=== PATIENT | male | born 1990 | race Caucasian/White ===

== ENCOUNTER 2018-11-02 19:51 | Emergency (ER) | payer OTHER ==
[~2018-11-02] VITALS: Ht 190.5 cm; Wt 93.0 kg
[2018-11-02] MEDS ORDERED: BUPROPION XL300 MG ORAL (20:13)
[2018-11-02] MEDS ORDERED: ADDERALL 30 MG30 MG ORAL (20:13)
--- NOTE | 2018-11-02 20:17 | NUR ---
ED Nurse Note: pt walked in c/o abd pain x 72 hrs, pt states he has sweats, chills, diarrhea, low back pain radiating to front abd on left side, and pain on urination. pt AA&ox4, gcs=15, skin warm and dry, resp even and unlabored on RA, +n but no dry heaves noted, no active v/d at this time, active BS, ambulates w/ steady gait, will cont monitor.
[2018-11-02 20:30] VITALS: BP 121/67
[2018-11-02] MEDS ORDERED: Isovue-300 100ml vial INJ PRN (21:15)
[2018-11-02 21:33] LABS: BASOPHILS % (AUTO) 0.7 % (0.0-2.0); EOSINOPHILS % (AUTO) 0.2 % (0.0-3.0); HEMATOCRIT 44.9 % (42.0-52.0); HEMOGLOBIN 15.8 G/DL (14.2-18.0); LYMPHOCYTES % (AUTO) 13.7 % (20.0-45.0); MEAN CORPUSCULAR VOLUME 86 FL (80-99); MONOCYTES % (AUTO) 9.4 % (1.0-10.0); PLATELET COUNT 217 K/UL (150-450); RED BLOOD COUNT 5.24 M/UL (4.70-6.10); RED CELL DISTRIBUTION WIDTH 11.4 % (11.6-14.8); WHITE BLOOD COUNT 14.1 K/UL (4.8-10.8)
[2018-11-02 21:33] LABS: APPEARANCE,URINE CLEAR; BILIRUBIN, URINE NEGATIVE (NEGATIVE); COLOR,URINE PALE YELLOW; GLUCOSE, URINE (UA) NEGATIVE (NEGATIVE); KETONES,URINE NEGATIVE (NEGATIVE); LEUKOCYTE ESTERASE ,URINE NEGATIVE (NEGATIVE); NITRITE,URINE NEGATIVE (NEGATIVE); PH,URINE 6 (4.5-8.0); PROTEIN,URINE 1+ (NEGATIVE); UROBILINOGEN,URINE NORMAL MG/DL (0.0-1.0)
[2018-11-02 21:43] LABS: ANION GAP 7 mmol/L (5-15); BLOOD UREA NITROGEN 11 mg/dL (7-18); CALCIUM 9.2 MG/DL (8.5-10.1); CARBON DIOXIDE 31 MMOL/L (21-32); CHLORIDE 96 MMOL/L (98-107); CREATININE 1.2 MG/DL (0.55-1.30); POTASSIUM 3.7 MMOL/L (3.5-5.1); SODIUM 134 MMOL/L (136-145)
[2018-11-02 21:47] LABS: ALANINE AMINOTRANSFERASE 91 U/L (12-78); ALBUMIN 3.9 G/DL (3.4-5.0); ALKALINE PHOSPHATASE 65 U/L (46-116); ASPARTATE AMINO TRANSFERASE 60 U/L (15-37); BILIRUBIN,TOTAL 0.7 MG/DL (0.2-1.0)
--- NOTE | 2018-11-02 22:28 | Emergency Room Report ---
History of Present Illness General Chief Complaint: Diarrhea Source: Patient (Cynthia John DO) Present Illness HPI This patient states that for the past 3 days he has had fever, chills and body aches. He states that he's noticed today that he has developed some epigastric pain. He states he flew on an airplane from [place] and wasn't feeling well. He is also had multiple episodes of diarrhea. He's had a very poor appetite. He denies travel out of the country. Denies dysuria or hematuria. He has no other complaints. (Cynthia John DO) Allergies: Coded Allergies: No Known Allergies (Unverified , 11/02/18) Patient History Past Medical History: none, see triage record Social History: Reports: drug use; Denies: smoking, alcohol use Reviewed Nursing Documentation: PMH: Agreed; PSxH: Agreed (Cynthia John DO) Nursing Documentation-PMH Past Medical History: No Stated History (Cynthia John DO) Review of Systems All Other Systems: negative except mentioned in HPI (Cynthia John DO) Physical Exam Vital Signs Date Time Temp Pulse Resp B/P (MAP) Pulse Ox O2 Delivery O2 Flow Rate FiO2 11/02/18 20:08 98.8 100 16 125/75 96 Room Air Sp02 EP Interpretation: reviewed, normal General Appearance: no apparent distress, alert, GCS 15, non-toxic Head: normocephalic, atraumatic Eyes: bilateral eye normal inspection, bilateral eye PERRL ENT: hearing grossly normal, normal pharynx, no angioedema, normal voice Neck: full range of motion, supple/symm/no masses Respiratory: chest non-tender, lungs clear, normal breath sounds, no respiratory distress, no retraction, no accessory muscle use, speaking full sentences Cardiovascular #1: regular rate, rhythm, no edema Gastrointestinal: normal bowel sounds, soft, non-distended, no guarding, no rebound, tenderness - TTP diffusely but refers to the RLQ Rectal: deferred Musculoskeletal: back normal, gait/station normal, normal range of motion, non- tender Neurologic: alert, oriented x3, responsive, motor strength/tone normal, sensory intact, speech normal Psychiatric: judgement/insight normal, memory normal, mood/affect normal, no suicidal/homicidal ideation Skin: normal color, no rash, warm/dry, well hydrated (Cynthia John DO) Medical Decision Making Diagnostic Impression: Primary Impression: Abdominal pain Additional Impression: Diarrhea Laboratory Tests Test 11/02/18 20:17 11/02/18 21:21 Urine Color Pale yellow Urine Appearance Clear Urine pH 6 (4.5-8.0) Urine Specific [place] 1.010 (1.005-1.035) Urine Protein 1+ (NEGATIVE) H Urine Glucose (UA) Negative (NEGATIVE) Urine Ketones Negative (NEGATIVE) Urine Blood 2+ (NEGATIVE) H Urine Nitrite Negative (NEGATIVE) Urine Bilirubin Negative (NEGATIVE) Urine Urobilinogen Normal MG/DL (0.0-1.0) Urine Leukocyte Esterase Negative (NEGATIVE) Urine RBC 0-2 /HPF (0 - 0) H Urine WBC 0 /HPF (0 - 0) Urine Squamous Epithelial Cells None /LPF (NONE/OCC) Urine Bacteria Few /HPF (NONE) Urine Opiates Screen Negative (NEGATIVE) Urine Barbiturates Screen Negative (NEGATIVE) Phencyclidine (PCP) Screen Negative (NEGATIVE) Urine Amphetamines Screen Positive (NEGATIVE) H Urine Benzodiazepines Screen Positive (NEGATIVE) H Urine Cocaine Screen Negative (NEGATIVE) Urine Marijuana (THC) Screen Positive (NEGATIVE) H White Blood Count 14.1 K/UL (4.8-10.8) H Red Blood Count 5.24 M/UL (4.70-6.10) Hemoglobin 15.8 G/DL (14.2-18.0) Hematocrit 44.9 % (42.0-52.0) Mean Corpuscular Volume 86 FL (80-99) Mean Corpuscular Hemoglobin 30.2 PG (27.0-31.0) Mean Corpuscular Hemoglobin Concent 35.2 G/DL (32.0-36.0) Red Cell Distribution Width 11.4 % (11.6-14.8) L Platelet Count 217 K/UL (150-450) Mean Platelet Volume 9.7 FL (6.5-10.1) Neutrophils (%) (Auto) 76.0 % (45.0-75.0) H Lymphocytes (%) (Auto) 13.7 % (20.0-45.0) L Monocytes (%) (Auto) 9.4 % (1.0-10.0) Eosinophils (%) (Auto) 0.2 % (0.0-3.0) Basophils (%) (Auto) 0.7 % (0.0-2.0) Sodium Level 134 MMOL/L (136-145) L Potassium Level 3.7 MMOL/L (3.5-5.1) Chloride Level 96 MMOL/L (98-107) L Carbon Dioxide Level 31 MMOL/L (21-32) Anion Gap 7 mmol/L (5-15) Blood Urea Nitrogen 11 mg/dL (7-18) Creatinine 1.2 MG/DL (0.55-1.30) Estimate Glomerular Filtration Rate > 60 mL/min (>60) Glucose Level 112 MG/DL (74-106) H Calcium Level 9.2 MG/DL (8.5-10.1) Total Bilirubin 0.7 MG/DL (0.2-1.0) Aspartate Amino Transferase (AST) 60 U/L (15-37) H Alanine Aminotransferase (ALT) 91 U/L (12-78) H Alkaline Phosphatase 65 U/L (46-116) Total Protein 8.0 G/DL (6.4-8.2) Albumin 3.9 G/DL (3.4-5.0) Globulin 4.1 g/dL Albumin/Globulin Ratio 1.0 (1.0-2.7) Lipase 98 U/L (73-393) Serum Alcohol < 3 mg/dL (Critical access hospital) ER Course Patient presented for abdominal pain. CT of abdomen pelvis read by radiology showed some evidence of nonspecific colitis. There is no evidence of acute appendicitis. Patient was noted to have some elevation of his white blood count will be started on Cipro for possible enteritis. Patient was advised to follow-up with another physician for recheck in 1-2 days. Patient was given number for a GI specialist. (Ayaan Tucker MD) Last Vital Signs Date Time Temp Pulse Resp B/P (MAP) Pulse Ox O2 Delivery O2 Flow Rate FiO2 11/02/18 20:30 98.8 104 16 121/67 96 Room Air (Critical access hospital) Status: improved (Ayaan Tucker MD) Disposition: HOME, SELF-CARE Condition: Stable Scripts Ciprofloxacin* (CIPRO*) 500 Mg Tablet 500 MG PO BID, #14 TAB Prov: Ayaan Tucker MD 11/03/18 Dicyclomine Hcl* (DICYCLOMINE HCL*) 10 Mg Capsule 10 MG PO QID, #30 CAP Prov: Ayaan Tucker MD 11/03/18 Cynthia John DO Nov 02, 2018 22:28 Ayaan Tucker MD Nov 03, 2018 00:49
[2018-11-02 22:30] VITALS: BP 119/60
[2018-11-03] MEDS ORDERED: DICYCLOMINE HCL10 MG PO (00:40)
[2018-11-03] MEDS ORDERED: CIPRO500 MG PO (00:44)
[2018-11-03 00:54] VITALS: BP 127/60
--- NOTE | 2018-11-03 00:54 | NUR ---
ED Nurse Note: pt cleared to be d/c per ERMD, pt d/c and aftercare instruction provided w/ prescription, pt education done via discussion and handout, pt advised to follow up with pcp or return to ed if sx worsen or new sx develop, pt verbalized understanding and agrees with plan, vss, resp even and unlabored on RA, ambulatory w/ steady gait, left w/ all belongings. wristband removed. iv d/c and dressing applied.
--- NOTE | 2018-11-03 11:38 | Diagnostic Imaging Report ---
Indication: Abdominal pain Technique: Continuous helical transaxial imaging of the abdomen and pelvis was obtained from the lung bases to the pubic symphysis during intravenous contrast administration. Coronal 2-D reformats were also obtained. Study obtained in a Siemens sensation [address] Automatic Exposure Control was utilized. Total Dose length Product (DLP): 887.[address] Dose Index Volume (CTDIvol): 15.91 mGy Comparison: None Findings: Lung bases are clear. The liver and spleen, pancreas, kidneys and gallbladder appear normal. No adrenal mass seen. No evidence of bowel obstruction or abscess. The bladder is unremarkable. There is diffuse circumferential wall thickening involving the colon consistent with colitis. IMPRESSION: Pancolitis. [facility] has communicated the preliminary results to the Emergency Department. Their findings are largely concordant with this report. The CT scanner at [facility] is accredited by the [employer] and the scans are performed using dose optimization techniques as appropriate to a performed exam including Automatic Exposure control.
== END 2018-11-03 00:56 | disposition home or self-care (01) ==
LOC: EMR 20:49
DX: K52.9 Noninfective gastroenteritis and colitis, unspecified (principal); R10.13 Epigastric pain
CPT/HCPCS: 36415; 74177; 80053; 80307; 81003; 83690; 85025; 96360; 99284; G0480; Q9967; 80329